=== PATIENT | male | born 2000 | race Caucasian/White ===

== ENCOUNTER 2019-08-23 13:56 | Emergency (ER) | payer BC ==
[~2019-08-23] VITALS: Ht 180.3 cm; Wt 54.9 kg
[2019-08-23] MEDS ORDERED: IBUPROFEN 600600 M1 PO (15:17)
[2019-08-23] MEDS ORDERED: TRAMADOL 50 MG50 MG PO (15:17)
[2019-08-23] MEDS ORDERED: PENICILLIN V P500 MG PO (15:17)
[2019-08-23 15:26] VITALS: BP 121/76
== END 2019-08-23 15:27 | disposition home or self-care (01) ==
LOC: M.ERS 13:56
DX: K08.89 Other specified disorders of teeth and supporting structures (principal)